=== PATIENT | female | born 1990 | race Caucasian/White ===

== ENCOUNTER → 2016-08-11 16:45 | Observation (INO) ==
[2016-08-11 15:21] LABS: Basophils # 0.1 K/mcL (0.0-0.2); Basophils % 0.5 %; Eosinophils # 0.3 K/mcL (0.0-0.6); Eosinophils % 1.8 %; Hemoglobin 13.4 g/dL (11.5-15.4); Lymphocytes # 3.1 K/mcL (0.6-4.6); Lymphocytes % 18.7 %; Mean Corpuscular HGB Conc 35.3 g/dL (31.6-35.5); Mean Corpuscular Hemoglobin 30.5 pg (28.0-33.3); Mean Corpuscular Volume 86.6 fL (83.0-100.0); Mean Platelet Volume 11.2 fL (9.4-12.4); Monocytes % 5.9 %; Neutrophils # 12.1 K/mcL (1.6-8.9); Platelet Count 248 K/mcL (140-400); Red Blood Count 4.39 M/mcL (3.82-4.97); Red Cell Distribution Width 13.2 % (11.5-14.5); Segmented Neutrophils % 72.1 %
[2016-08-11 15:30] LABS: Protein/Creatinine Ratio,Urine 0.13 mg/mg (0-0.20)
[2016-08-11 15:35] LABS: Alanine Aminotransferase 8 Units/L (0-55); Aspartate Amino Transferase 16 Units/L (5-34); BUN/Creatinine Ratio 9 (6-26); Blood Urea Nitrogen 7 mg/dL (7-20); Lactate Dehydrogenase 152 Units/L (159-327); Uric Acid 5.9 mg/dL (2.6-6.0); eGFR For African Americans > 60 (> 60); eGFR For Non-African Americans > 60 (> 60)
--- NOTE | 2016-08-11 16:54 | OB/GYN Progress Note ---
Date of Encounter: 08/11/16 Time of Encounter: 16:51 - Assessment and Plan (1) Gestational hypertension Current Visit: Yes Status: Acute BP normal to mild range in triage. No s/sx preeclampsia. PIH labs WNL. UPCR 0.13 Discharge home with precautions. Pt to be off work. Follow-up for NST and BP check on Wednesday. POC discussed with Dr. Higuera. Qualifiers: Trimester: third trimester Qualified Code(s): O13.3 - Gestational [ -induced] hypertension without significant proteinuria, third trimester (2) 36 weeks gestation of Current Visit: Yes Status: Acute Subjective - Subjective Interval history: 26 year-old presenting at 36w5d from office due to elevated blood pressure 162/00. She denies HASTINGS, vision changes or RUQ pain. No other complaints. Good FM. Antepartum ROS: movement normal, no loss of fluid, no vaginal bleeding, no contractions Objective - Vital Signs Vital Signs: Intake and Output 08/11/16 08/11/16 08/11/16 07:59 15:59 23:59 Other: Weight 100.335 kg Patient Weight 08/11/16 23:59 Weight 100.335 kg - Exam FHR: category 1 FHR comments: NST reactive Auscultation: bilateral: normal Abdomen: Present: soft, gravid. Absent: tenderness Uterus: Absent: tenderness Comments: 1+ edema of LE bilaterally. Reflexes normal. - Labs Labs: Abnormal lab results WBC 16.7 K/mcL (4.3-11.1) H 08/11/16 15:09 Neutrophils # 12.1 K/mcL (1.6-8.9) H 08/11/16 15:09 Lactate Dehydrogenase 152 Units/L (159-327) L 08/11/16 15:09
== END | disposition home or self-care (01) ==
LOC: 1NENULAB
PROVIDERS: ADMIT Obstetrics & Gynecology; ATTEND Obstetrics & Gynecology

== ENCOUNTER 2016-08-28 14:20 | Inpatient (IN) ==
[2016-08-28] MEDS ORDERED: Ondansetron 4 MG/2 ML VIAL IVP PRN (14:55)
[2016-08-28] MEDS ORDERED: Famotidine 20 MG/2 ML VIAL IVP PRN (14:55)
[2016-08-28] MEDS ORDERED: Naloxone 0.4 MG/ML INJ IVP PRN (14:55)
[2016-08-28] MEDS ORDERED: Ringers Solution, Lactated 1,000 ML IVC SCH (15:00)
[2016-08-28] MEDS ORDERED: miSOPROStol 25 MCG TABLET VG PRN (15:24)
--- NOTE | 2016-08-28 15:25 | OB/GYN History & Physical ---
Date of Encounter: 08/28/16 Time of Encounter: 15:23 Assessment and Plan (1) 39 weeks gestation of Current visit: Yes Status: Acute (2) Rh negative status during Current visit: Yes Status: Acute Qualifiers: Trimester: third trimester Qualified Code(s): O09.893 - Supervision of other high risk pregnancies, third trimester (3) Gestational hypertension Current visit: No Status: Acute Admit for IOL due to gestational HTN. PIH labs pending. BP currently 140's-150's/100's. Pt denies s/sx preeclampsia. Plan for cytotec/foly for induction. SVE /-2. Epidural if requested. GBS negative. Anticpate . Qualifiers: Trimester: third trimester Qualified Code(s): O13.3 - Gestational [ -induced] hypertension without significant proteinuria, third trimester History of Present Illness Chief complaint: GHTN HPI: Ms. Lopez is a 26 year old female presenting at 39w1d from office due to BP 146/100. She denies HASTINGS, vision changes, or RUQ pain. She has some edema in UE and LE that is better today than it has been. Good FM. No LOF or VB. US today in office shows vtx presentation, posterior placenta, normal YOJANA, and BPP 8/8. She has had intermittently elevated blood pressures since 36 weeks. No other complications with this . Blood type A negative. Rubella immune. Serologies and GBS negative. Past Med Surg Social Fam HX - Past Medical History Medical history: no medical history Psychiatric history: no psych history - Past Surgical History Surgical History: non-contributory - Social History Smoking Status: Never smoker Smokeless Tobacco Status: No Alcohol use: unknown Drug use: none - Family History Mother Living Status: Still Living Hx Family Cardiac Disorders: No Hx Family Respiratory Disorders: No Hx Family Cancer: No Hx Family GI Disorders: No Hx Family Genitourinary Disorders: No Hx Family Endocrine Disorder: No Hx Family Musculoskeletal Disorders: No Hx Family Neuromuscular Disorders: No Hx Family Neurologic Disorders: No Hx Family HEENT Disorders: No Hx Family Autoimmune Disorders: No Hx Family Reproductive Disorders: No Hx Family Psychosocial Disorders: No Hx Family Medical Disorders: No Obstetrical History - Pregnancies : 1 Medications and Allergies Vitamins 1 tab PO DAILY 05/09/16 [History] Fluticasone Propionate [Flonase Allergy Relief] 9.9 ml NS DAILY 08/11/16 [ History] Allergies No Known Allergies Allergy (Verified 05/09/16 10:31) Review of System OB All systems PM: reviewed and no additional remarkable complaints except as stated Exam - Constitutional Constitutional: well developed, well nourished, no acute distress - HEENT HEENT: Mucus Membranes Moist - Lungs Respiratory exam: CTAB - Cardiovascular Cardiovascular exam: RRR, +S1, +S2 - Abdomen Abdomen: Present: gravid, non tender - Extremities Extremities exam: pedal edema (mild edema bilateral ankles and hands) - Vulva Vulva: bilateral: normal - Vagina Vagina: Present: normal moisture - Cervix Dilation: 1 Effacement: 70 Station: -2 - Uterus Uterus exam: Present: normal size (EFW by sudhir 7 3/4 pounds) - Anus/Rectum Anus/Rectum: Present: normal perianal skin Results All other labs normal. - VTE Reasons for not Prescribing Prophylaxis: Treatment not Indicated - Low risk for VTE
[2016-08-28 15:30] LABS: Basophils # 0.1 K/mcL (0.0-0.2); Basophils % 0.6 %; Eosinophils # 0.4 K/mcL (0.0-0.6); Eosinophils % 2.3 %; Hematocrit 40.4 % (35.3-44.9); Hemoglobin 14.1 g/dL (11.5-15.4); Immature Granulocytes % 1.1 % (0-4); Lymphocytes # 3.5 K/mcL (0.6-4.6); Lymphocytes % 19.2 %; Mean Corpuscular HGB Conc 34.9 g/dL (31.6-35.5); Mean Corpuscular Hemoglobin 30.5 pg (28.0-33.3); Mean Corpuscular Volume 87.3 fL (83.0-100.0); Mean Platelet Volume 12.2 fL (9.4-12.4); Monocytes # 1.2 K/mcL (0.0-1.3); Monocytes % 6.7 %; Neutrophils # 12.9 K/mcL (1.6-8.9); Platelet Count 238 K/mcL (140-400); Red Blood Count 4.63 M/mcL (3.82-4.97); Red Cell Distribution Width 13.2 % (11.5-14.5); Segmented Neutrophils % 70.1 %
[2016-08-28 15:38] LABS: Protein/Creatinine Ratio,Urine 0.16 mg/mg (0-0.20)
[2016-08-28 15:42] LABS: Alanine Aminotransferase 11 Units/L (0-55); Aspartate Amino Transferase 14 Units/L (5-34); BUN/Creatinine Ratio 12 (6-26); Blood Urea Nitrogen 9 mg/dL (7-20); Lactate Dehydrogenase 148 Units/L (159-327); eGFR For African Americans > 60 (> 60); eGFR For Non-African Americans > 60 (> 60)
--- NOTE | 2016-08-28 15:46 | OB Labor Progress Note ---
Date of Encounter: 08/28/16 Time of Encounter: 15:43 Labor Progress Note - Subjective Subjective: Pt denies complaints at this time. - Cervix Cervix: /-2 - Heart Tones Heart Tones: Category I - [place]: irregular UC - Interventions Interventions: Larios placed in cervix using sterile technique. Balloon inflated with 30ml sterile water. Pt tolerated well. - Plan Plan: Continue to monitor. Epidural if requested. Anticipate .
--- NOTE | 2016-08-28 21:07 | OB Labor Progress Note ---
Date of Encounter: 08/28/16 Time of Encounter: 21:05 Labor Progress Note - Subjective Subjective: Pt reports pain is 2-3/10 with contractions. - Cervix Cervix: 4/70/-1 - Heart Tones Heart Tones: Category I - Gholson Gholson: 1.5-2.5 minutes - Interventions Interventions: AROM for moderate amount clear fluid. IUPC placed. - Plan Plan: Continue to monitor. Pain medication as requested. Pt may get up to sit on birthing ball. Anticipate .
[2016-08-29] MEDS ORDERED: Epidural Premix (fent/bupiv) 110 ML EP ONE (00:57)
[2016-08-29] MEDS ORDERED: Epidural Premix (fent/bupiv) 110 ML EP SCH (01:00)
[2016-08-29] MEDS ORDERED: Oxytocin 20 units/ LR 1000 mL 20 UNIT/1,000 ML BAG IVC ONE (01:43)
--- NOTE | 2016-08-29 01:48 | Anesthesia Evaluation PreOp ---
Date of Encounter: 08/29/16 Time of Encounter: 01:00 - Past History Planned Operation: ALEX Cardiac History: Denies any Significant Hx Pulmonary History: Denies Any Significant HX DIRECTOR OPERATING ROOM History: Denies Any Significant HX Other Medical History: Denies Any Significant HX Anesthesia History: No Prior Anesthetic Complications : Yes Test: Positive Alcohol Use: none, unknown Drug use: none Medications and Allergies Vitamins 1 tab PO DAILY 05/09/16 [History] Fluticasone Propionate [Flonase Allergy Relief] 9.9 ml NS DAILY 08/11/16 [ History] Allergies No Known Allergies Allergy (Verified 05/09/16 10:31) - Meds/Allergy Pre-op Review Medications Reviewed: Yes Allergies Reviewed: Yes Beta Blockers on Current Med List: No Anesthesia Results - Labs 08/28/16 14:40 08/28/16 14:40 Anesthesia Exam - HEENT Pupil (Motor): Pupils equal Mallampati: II Teeth: Normal Oral Opening: Greater than 3 - DIRECTOR OPERATING ROOM LOC: Oriented DIRECTOR OPERATING ROOM Motor: Normal RUE, Normal LUE, Normal RLE, Normal LLE, Normal Face DIRECTOR OPERATING ROOM Sensory: Normal: RUE, LUE, RLE, LLE, Face - Cardiac Rhythm: Regular Murmur: None JVD: No Carotid Bruit: No - Pulmonary Breath Sounds: bilateral Clear Respiratory Effort: Symmetrical Anesthesia Assess/Plan ASA Score: 2 Modified [place] Scale for Level of Consciousness: Cooperative, oriented, and tranquil Anesthetic Plan: Regional Autologous Blood: No Monitoring Plan: Standard Monitors
--- NOTE | 2016-08-29 01:50 | Anesthesia Procedures ---
Date of Encounter: 08/29/16 Time of Encounter: 01:00 Procedures: Anesthesia - Epidural/Spinal Patient ID/Chart reviewed: Yes Patient examined: Yes OB Eval: Gestational age: 39.1 OB Eval: : 1 OB Eval: Hx Para: 0 OB Eval: Dilated at (cm): 4 OB Eval: Contractions: Non-stressed pattern Consent Obtained: Yes Supplemental Oxygen: None/Room Air Site Prep: Aseptic Technique, Sterile prep and drape, Povidone-Iodine 1% Patient position: upright Local Anesthetic: Lidocaine 1% Amount of Local Anesthetic used: 3 Touhy Needle Gauge: 18 Touhy Needle Depth (cm): 7 Catheter Depth at Skin (cm): 12 Test Dose (1.5% Lido + Epi): Volume given (mls): 3 Test Dose Result: Negative Infusion Med: 0.125% Bupivacaine w/ 2 mcg/ml Fentanyl Infusion Rate (mls/hr): [address]: Tegaderm, Tape Interspace Used: L3-L4 Loss of Resistance (NUHA): Yes Blood: No CSF: No Paresthesia: No Vitals + FHT's: stable throughout see nursing notes
[2016-08-29] MEDS ORDERED: Lidocaine 1% 20 ML MDV ONE (02:00)
[2016-08-29] MEDS ORDERED: Rho Immune Globulin 1,500 UNIT SYRINGE IM PRN (02:55)
[2016-08-29] MEDS ORDERED: Measles/Mumps/Rubella Vacc 0.5 ML VIAL SQ PRN (02:55)
--- NOTE | 2016-08-29 03:02 | OB/GYN Procedure Note ---
Delivery - Delivery Date: 08/29/16 Provider: Nicko Higuera Intrapartum events: none Delivery induction: lopez, misoprostol Delivery augmentation: rupture of membranes Delivery monitor: external FHT, internal uterine Anesthesia: local, epidural Estimated Blood Loss: 100 - (s) A Delivery Date: 08/29/16 Delivery Time: 01:51 Presentation: vertex Position: JACQUI Gender: Male Viability: Viable Weight Gram: 3.075 kg at 1 minute: 8 at 5 mins: 9 Shoulder Dystocia: not encountered Specimens collected: cord blood Cord: 3 umbilical vessels - Repair Laceration Description: Perineal - 3rd Degree - Complications Delivery complications: none - Disposition Mom disposition: stable in LDR Dagmar disposition: stable in LDR - Comments Comments: Pt s/p of liveborn male . Partial 3rd degree laceration occured during delivery with superficial tear of muscular capsule. This was repaired under local and epidural with 3-0 Vicryl.
[2016-08-29 05:33] LABS: Hemoglobin 13.5 g/dL (11.5-15.4); Mean Corpuscular HGB Conc 34.6 g/dL (31.6-35.5); Mean Corpuscular Hemoglobin 30.1 pg (28.0-33.3); Mean Corpuscular Volume 87.1 fL (83.0-100.0); Mean Platelet Volume 11.8 fL (9.4-12.4); Platelet Count 227 K/mcL (140-400); Red Blood Count 4.48 M/mcL (3.82-4.97); Red Cell Distribution Width 13.2 % (11.5-14.5)
[2016-08-29 05:59] LABS: Lymphocytes # 2.5 K/mcL (0.6-4.6); Monocytes # 1.3 K/mcL (0.0-1.3); Neutrophils # 27.8 K/mcL (1.6-8.9); Platelet Estimate Normal (Normal); Reactive Lymphocytes Present (Not Present); Toxic Granulation Present (Not Present)
[2016-08-29] MEDS: Prenatal Vit/FA 1 EACH TABLET PO SCH (08:12)
[2016-08-29] MEDS: Acetaminophen 325 MG TABLET PO PRN ×2 (08:12→21:08)
[2016-08-29] MEDS ORDERED: [UNRECOGNIZED DRUG - OTHER] NS SCH (09:00)
[2016-08-30 05:38] LABS: Basophils # 0.1 K/mcL (0.0-0.2); Basophils % 0.7 %; Eosinophils # 0.5 K/mcL (0.0-0.6); Eosinophils % 2.6 %; Hematocrit 36.2 % (35.3-44.9); Hemoglobin 12.3 g/dL (11.5-15.4); Lymphocytes # 4.1 K/mcL (0.6-4.6); Lymphocytes % 22.2 %; Mean Corpuscular Hemoglobin 30.2 pg (28.0-33.3); Mean Corpuscular Volume 88.9 fL (83.0-100.0); Monocytes # 1.4 K/mcL (0.0-1.3); Monocytes % 7.8 %; Neutrophils # 12.1 K/mcL (1.6-8.9); Platelet Count 184 K/mcL (140-400); Red Blood Count 4.07 M/mcL (3.82-4.97); Red Cell Distribution Width 13.5 % (11.5-14.5); Segmented Neutrophils % 65.7 %
[2016-08-30 05:55] LABS: Alanine Aminotransferase 9 Units/L (0-55); Aspartate Amino Transferase 22 Units/L (5-34); BUN/Creatinine Ratio 15 (6-26); Blood Urea Nitrogen 12 mg/dL (7-20); Lactate Dehydrogenase 198 Units/L (159-327); Uric Acid 7.2 mg/dL (2.6-6.0); eGFR For African Americans > 60 (> 60); eGFR For Non-African Americans > 60 (> 60)
[2016-08-30] MEDS: Prenatal Vit/FA 1 EACH TABLET PO SCH (08:15)
[2016-08-30 08:24] VITALS: BP 136/90
--- NOTE | 2016-08-30 10:17 | Discharge Summary ---
Date of Encounter: 08/30/16 Time of Encounter: 10:17 - Discharge Diagnosis (1) Status post normal vaginal delivery Priority: Primary Status: Acute Comments: Doing well, will d/c home. (2) Gestational hypertension Priority: Secondary Status: Acute Comments: No s/sx's of preeclampsia. Will d/c home. Bp's improved. Qualifiers: Trimester: third trimester Qualified Code(s): O13.3 - Gestational [ -induced] hypertension without significant proteinuria, third trimester - Discharge Medications Prescriptions: Ibuprofen [Motrin] 600 mg PO Q6HR PRN #40 tab PRN Reason: cramps Home Medications: Vitamins 1 tab PO DAILY 05/09/16 [History] Fluticasone Propionate [Flonase Allergy Relief] 9.9 ml NS DAILY 08/11/16 [ History] Ibuprofen [Motrin] 600 mg PO Q6HR PRN #40 tab 08/30/16 [Rx] Allergies/Adverse Reactions: Allergies No Known Allergies Allergy (Verified 05/09/16 10:31) Data Procedures and tests throughout hospitalization: Laboratory Tests 08/28/16 08/28/16 08/28/16 14:40 14:40 14:44 WBC 18.4 H RBC 4.63 Hgb 14.1 Hct 40.4 MCV 87.3 MCH 30.5 MCHC 34.9 RDW 13.2 Plt Count 238 MPV 12.2 Immature Gran % 1.1 Seg Neutrophils % 70.1 Band Neutrophils % Lymphocytes % 19.2 Monocytes % 6.7 Eosinophils % 2.3 Basophils % 0.6 Neutrophils # 12.9 H Lymphocytes # 3.5 Monocytes # 1.2 Eosinophils # 0.4 Basophils # 0.1 Reactive Lymphocytes Toxic Granulation Platelet Estimate BUN 9 Creatinine 0.76 Est GFR ( Amer) > 60 Est GFR (Non-Af Amer) > 60 BUN/Creatinine Ratio 12 Uric Acid 6.0 AST 14 ALT 11 Lactate Dehydrogenase 148 L Urine Creatinine 74 Protein/Creatinin Ratio 0.16 Urine Total Protein 12 Baby's Blood Type Mother's Blood Type Rhogam Indicated 08/29/16 08/29/16 08/30/16 04:58 07:21 05:25 WBC 31.6 H* D RBC 4.48 Hgb 13.5 Hct 39.0 MCV 87.1 MCH 30.1 MCHC 34.6 RDW 13.2 Plt Count 227 MPV 11.8 Immature Gran % Seg Neutrophils % 66.0 Band Neutrophils % 22.0 H Lymphocytes % 8.0 Monocytes % 4.0 Eosinophils % Basophils % Neutrophils # 27.8 H Lymphocytes # 2.5 Monocytes # 1.3 Eosinophils # Basophils # Reactive Lymphocytes Present A Toxic Granulation Present A Platelet Estimate Normal BUN 12 Creatinine 0.82 Est GFR ( Amer) > 60 Est GFR (Non-Af Amer) > 60 BUN/Creatinine Ratio 15 Uric Acid 7.2 H AST 22 ALT 9 Lactate Dehydrogenase 198 Urine Creatinine Protein/Creatinin Ratio Urine Total Protein Baby's Blood Type A RH NEGATIVE Mother's Blood Type A RH NEGATIVE Rhogam Indicated NO 08/30/16 05:25 WBC 18.4 H RBC 4.07 Hgb 12.3 Hct 36.2 MCV 88.9 MCH 30.2 MCHC 34.0 RDW 13.5 Plt Count 184 MPV 11.0 Immature Gran % 1.0 Seg Neutrophils % 65.7 Band Neutrophils % Lymphocytes % 22.2 Monocytes % 7.8 Eosinophils % 2.6 Basophils % 0.7 Neutrophils # 12.1 H Lymphocytes # 4.1 Monocytes # 1.4 H Eosinophils # 0.5 Basophils # 0.1 Reactive Lymphocytes Toxic Granulation Platelet Estimate BUN Creatinine Est GFR ( Amer) Est GFR (Non-Af Amer) BUN/Creatinine Ratio Uric Acid AST ALT Lactate Dehydrogenase Urine Creatinine Protein/Creatinin Ratio Urine Total Protein Baby's Blood Type Mother's Blood Type Rhogam Indicated Labs on day of discharge: Labs from last 24 hours 08/30/16 08/30/16 05:25 05:25 WBC 18.4 H RBC 4.07 Hgb 12.3 Hct 36.2 MCV 88.9 MCH 30.2 MCHC 34.0 RDW 13.5 Plt Count 184 MPV 11.0 Immature Gran % 1.0 Seg Neutrophils % 65.7 Lymphocytes % 22.2 Monocytes % 7.8 Eosinophils % 2.6 Basophils % 0.7 Neutrophils # 12.1 H Lymphocytes # 4.1 Monocytes # 1.4 H Eosinophils # 0.5 Basophils # 0.1 BUN 12 Creatinine 0.82 Est GFR ( Amer) > 60 Est GFR (Non-Af Amer) > 60 BUN/Creatinine Ratio 15 Uric Acid 7.2 H AST 22 ALT 9 Lactate Dehydrogenase 198 - Impressions Doing great, desires d/c home. Date of admission: 08/28/16 14:55 Primary care physician: PCP NO Consults: 08/29/16 02:56 Consult to Manager Statistics [CONS] Routine Comment: Vaginal delivery, consult needed - Patient Status Disposition: Home, Self-Care Condition: Good Functional capacity at discharge: independent ambulation Overall status at discharge: patient is progressing back to baseline - Discharge Instructions Follow Up With: Nicko Higuera MD [Partnered Physician] - - Diet and Activity Activity: increase activity as tolerated Diet: regular diet Hospital Course GPS FIELD DATA COLLECTOR Time Attestation: Total time spent providing and/or coordinating discharge services: Exam - Constitutional Vitals: Temp Pulse Resp BP Pulse Ox 97.8 F 90 16 136/90 96 08/30/16 08:23 08/30/16 08:23 08/30/16 08:23 08/30/16 08:23 08/30/16 03:56 General appearance IM: A&O X 3 - Respiratory Respiratory exam: Present: CTAB - Cardiovascular Cardiovascular exam IM: Present: RRR - GI/Abdominal GI/Abdominal exam IM: normal bowel sounds - Extremities Exam Extremities exam IM: Present: full ROM - Neurological Exam Neurological exam: oriented X3 - VTE Reasons for not Prescribing Prophylaxis: Treatment not Indicated - Low risk for VTE
== END 2016-08-30 13:52 | disposition home or self-care (01) | DRG 775 ==
LOC: 1NENULAB → OBSVTOIN 14:20 → INTOOBSV 14:20 → 1NENUOBS 08-29 04:45
PROVIDERS: ADMIT Obstetrics & Gynecology; ATTEND Obstetrics & Gynecology

== ENCOUNTER → 2018-02-04 13:26 | Observation (INO) ==
[2018-02-04 11:59] LABS: Bilirubin,Urine Negative (Negative); Blood,Urine Negative (Negative); Clarity,Urine Cloudy (Clear); Color,Urine Yellow (Yellow); Glucose,Urine (UA) Normal (Normal); Ketones,Urine Negative (Negative); Leukocyte Esterase,Urine Small (Negative); Nitrite,Urine Negative (Negative); Protein,Urine Negative (Neg-Trace); Urobilinogen,Urine Normal (Normal)
[2018-02-04 12:01] LABS: Bacteria,Urine Moderate per hpf (None-Few); Hyaline Casts,Urine None Seen per lpf (None-Few); RBC,Urine 0-3 per hpf (0-3); Squamous Epithelial Cell,Urine Many per lpf (None-Few)
[2018-02-04 12:03] LABS: Basophils # 0.1 K/mcL (0.0-0.2); Basophils % 0.6 %; Eosinophils # 0.5 K/mcL (0.0-0.6); Eosinophils % 2.9 %; Hematocrit 38.3 % (35.3-44.9); Hemoglobin 13.2 g/dL (11.5-15.4); Immature Granulocytes % 1.5 % (0-4); Lymphocytes # 3.1 K/mcL (0.6-4.6); Lymphocytes % 16.8 %; Mean Corpuscular HGB Conc 34.5 g/dL (31.6-35.5); Mean Corpuscular Hemoglobin 30.4 pg (28.0-33.3); Mean Corpuscular Volume 88.2 fL (83.0-100.0); Mean Platelet Volume 10.9 fL (9.4-12.4); Monocytes # 1.2 K/mcL (0.0-1.3); Monocytes % 6.2 %; Neutrophils # 13.5 K/mcL (1.6-8.9); Platelet Count 244 K/mcL (140-400); Red Blood Count 4.34 M/mcL (3.82-4.97); Red Cell Distribution Width 13.1 % (11.5-14.5)
[2018-02-04 12:18] LABS: Alanine Aminotransferase 7 Units/L (7-52); Aspartate Amino Transferase 11 Units/L (13-39); BUN/Creatinine Ratio 16 (6-26); Blood Urea Nitrogen 8 mg/dL (6-20); Lactate Dehydrogenase 104 Units/L (140-271); Uric Acid 4.5 mg/dL (2.3-7.6); eGFR For Non-African Americans > 60 (> 60)
[2018-02-04 12:21] LABS: Amphetamine Screen,Urine Negative ng/mL (Cutoff=1000); Barbiturate Screen,Urine Negative ng/mL (Cutoff=200); Benzodiazepines Screen,Urine Negative ng/mL (Cutoff=200); Cannabinoid Screen,Urine Negative ng/mL (Cutoff = 50); Cocaine Screen,Urine Negative ng/mL (Cutoff= 300); Creatinine,Urine 73 mg/dL; Opiate Screen,Urine Negative ng/mL (Cutoff=300); Phencyclidine Screen,Urine Negative ng/mL (Cutoff=25); Protein/Creatinine Ratio,Urine 0.15 mg/mg (0.00-0.20)
--- NOTE | 2018-02-04 13:14 | Discharge Summary ---
Date of Encounter: 02/04/18 Time of Encounter: 13:12 - Discharge Diagnosis (1) 30 weeks gestation of Priority: Primary Status: Acute Comments: Follow-up with Dr. Higuera as scheduled labor precautions discussed Discharge home (2) Elevated blood pressure affecting in third trimester, antepartum Priority: Secondary Status: Acute Comments: Blood pressures elevated in office-resolved on L&D - Discharge Medications Home Medications: Vitamins 1 tab PO DAILY 05/09/16 [History] Allergies/Adverse Reactions: 3 Allergy/AdvReac Type Severity Reaction Status Date / Time No Known Allergies Allergy Verified 07/06/17 12:37 Data Procedures and tests throughout hospitalization: Laboratory Tests 02/04/18 02/04/18 02/04/18 11:26 11:27 11:43 WBC 18.7 H RBC 4.34 Hgb 13.2 Hct 38.3 MCV 88.2 MCH 30.4 MCHC 34.5 RDW 13.1 Plt Count 244 MPV 10.9 Immature Gran % 1.5 Seg Neutrophils % 72.0 Lymphocytes % 16.8 Monocytes % 6.2 Eosinophils % 2.9 Basophils % 0.6 Neutrophils # 13.5 H Lymphocytes # 3.1 Monocytes # 1.2 Eosinophils # 0.5 Basophils # 0.1 BUN Creatinine Est GFR ( Amer) Est GFR (Non-Af Amer) BUN/Creatinine Ratio Uric Acid AST ALT Lactate Dehydrogenase Urine Color Yellow Urine Clarity Cloudy A Urine pH 7.0 Ur Specific [place] 1.020 Urine Protein Negative Urine Glucose (UA) Normal Urine Ketones Negative Urine Blood Negative Urine Nitrite Negative Urine Bilirubin Negative Urine Urobilinogen Normal Ur Leukocyte Esterase Small H Urine Microscopic RBC 0-3 Urine Microscopic WBC 5-15 H Ur Squamous Epith Cells Many H Urine Bacteria Moderate H Hyaline Casts None Seen Urine Creatinine 73 Protein/Creatinin Ratio 0.15 Urine Total Protein 11 Urine Opiates Screen Negative Ur Barbiturates Screen Negative Ur Phencyclidine Scrn Negative Ur Amphetamines Screen Negative U Benzodiazepines Scrn Negative Urine Cocaine Screen Negative U Marijuana (THC) Screen Negative Ur Drug Screen Interp See Below 02/04/18 11:43 WBC RBC Hgb Hct MCV MCH MCHC RDW Plt Count MPV Immature Gran % Seg Neutrophils % Lymphocytes % Monocytes % Eosinophils % Basophils % Neutrophils # Lymphocytes # Monocytes # Eosinophils # Basophils # BUN 8 Creatinine 0.50 L Est GFR ( Amer) > 60 Est GFR (Non-Af Amer) > 60 BUN/Creatinine Ratio 16 Uric Acid 4.5 AST 11 L ALT 7 Lactate Dehydrogenase 104 L Urine Color Urine Clarity Urine pH Ur Specific [place] Urine Protein Urine Glucose (UA) Urine Ketones Urine Blood Urine Nitrite Urine Bilirubin Urine Urobilinogen Ur Leukocyte Esterase Urine Microscopic RBC Urine Microscopic WBC Ur Squamous Epith Cells Urine Bacteria Hyaline Casts Urine Creatinine Protein/Creatinin Ratio Urine Total Protein Urine Opiates Screen Ur Barbiturates Screen Ur Phencyclidine Scrn Ur Amphetamines Screen U Benzodiazepines Scrn Urine Cocaine Screen U Marijuana (THC) Screen Ur Drug Screen Interp Labs on day of discharge: Labs from last 24 hours 02/04/18 02/04/18 02/04/18 11:43 11:43 11:27 WBC 18.7 H RBC 4.34 Hgb 13.2 Hct 38.3 MCV 88.2 MCH 30.4 MCHC 34.5 RDW 13.1 Plt Count 244 MPV 10.9 Immature Gran % 1.5 Seg Neutrophils % 72.0 Lymphocytes % 16.8 Monocytes % 6.2 Eosinophils % 2.9 Basophils % 0.6 Neutrophils # 13.5 H Lymphocytes # 3.1 Monocytes # 1.2 Eosinophils # 0.5 Basophils # 0.1 BUN 8 Creatinine 0.50 L Est GFR ( Amer) > 60 Est GFR (Non-Af Amer) > 60 BUN/Creatinine Ratio 16 Uric Acid 4.5 AST 11 L ALT 7 Lactate Dehydrogenase 104 L Urine Color Yellow Urine Clarity Cloudy A Urine pH 7.0 Ur Specific [place] 1.020 Urine Protein Negative Urine Glucose (UA) Normal Urine Ketones Negative Urine Blood Negative Urine Nitrite Negative Urine Bilirubin Negative Urine Urobilinogen Normal Ur Leukocyte Esterase Small H Urine Microscopic RBC 0-3 Urine Microscopic WBC 5-15 H Ur Squamous Epith Cells Many H Urine Bacteria Moderate H Hyaline Casts None Seen Urine Creatinine Protein/Creatinin Ratio Urine Total Protein Urine Opiates Screen Ur Barbiturates Screen Ur Phencyclidine Scrn Ur Amphetamines Screen U Benzodiazepines Scrn Urine Cocaine Screen U Marijuana (THC) Screen Ur Drug Screen Interp 02/04/18 11:26 WBC RBC Hgb Hct MCV MCH MCHC RDW Plt Count MPV Immature Gran % Seg Neutrophils % Lymphocytes % Monocytes % Eosinophils % Basophils % Neutrophils # Lymphocytes # Monocytes # Eosinophils # Basophils # BUN Creatinine Est GFR ( Amer) Est GFR (Non-Af Amer) BUN/Creatinine Ratio Uric Acid AST ALT Lactate Dehydrogenase Urine Color Urine Clarity Urine pH Ur Specific [place] Urine Protein Urine Glucose (UA) Urine Ketones Urine Blood Urine Nitrite Urine Bilirubin Urine Urobilinogen Ur Leukocyte Esterase Urine Microscopic RBC Urine Microscopic WBC Ur Squamous Epith Cells Urine Bacteria Hyaline Casts Urine Creatinine 73 Protein/Creatinin Ratio 0.15 Urine Total Protein 11 Urine Opiates Screen Negative Ur Barbiturates Screen Negative Ur Phencyclidine Scrn Negative Ur Amphetamines Screen Negative U Benzodiazepines Scrn Negative Urine Cocaine Screen Negative U Marijuana (THC) Screen Negative Ur Drug Screen Interp See Below Date of admission: 02/04/18 11:17 Primary care physician: PCP NONE Discharging clinician: Debra Ortiz Anticipated date of discharge: 02/04/18 - Patient Status Disposition: Home, Self-Care Condition: Good Functional capacity at discharge: independent ambulation Overall status at discharge: patient is back to baseline - Discharge Instructions Follow Up With: NONE,PCP [Primary Care Provider] - Nicko Higuera MD [Partnered Physician] - - Diet and Activity Activity: increase activity as tolerated Diet: regular diet Hospital Course [employer] Reason for admission: other Discharge diagnosis: other Hospital course: Patient presents from office with complaints of elevated blood pressures 2. Blood pressures remain within normal at 120s over 80s on L&D. PIH evaluation- negative. Preeclampsia and labor precautions discussed with patient and partner. Both verbalize understanding of when to seek help. Patient discharged home in stable condition Time Attestation: Total time spent providing and/or coordinating discharge services: Time Spent: Less than 30 minutes Exam - Constitutional General appearance IM: A&O X 3 - Respiratory Respiratory exam: Present: CTAB - Cardiovascular Cardiovascular exam IM: Present: RRR, +S1, +S2 - GI/Abdominal GI/Abdominal exam IM: normal bowel sounds, no peritoneal signs - Rectal Rectal exam: deferred - Uterine Tone: Firm - Extremities Exam Extremities exam IM: Present: normal capillary refill, normal inspection, radial pulses palpable and symmetrical - Neurological Exam Neurological exam: alert, CN II-XII intact, normal gait, oriented X3, reflexes normal, no focal deficits, strengths equal and symetr throughout - VTE Reasons for not Prescribing Prophylaxis: Treatment not Indicated - Low risk for VTE
== END | disposition home or self-care (01) ==
LOC: 1NENULAB
PROVIDERS: ADMIT Advanced Practice Midwife; ATTEND Advanced Practice Midwife